=== PATIENT | female | born 1975 | race Caucasian/White ===

== ENCOUNTER → 2016-05-09 | Outpatient (REF) | payer OTHER | LOC: M LAB REF 15:17 | PROVIDERS: ATTEND Physician Assistant | DX: N39.0 Urinary tract infection, site not specified (principal) ==

== ENCOUNTER → 2017-05-14 | Outpatient (CLI) | payer OTHER | LOC: M RAD 09:25 | DX: R79.9 Abnormal finding of blood chemistry, unspecified (principal) | CPT/HCPCS: 70551 ==

== ENCOUNTER → 2018-04-29 | Outpatient (REF) | payer OTHER | LOC: M LAB REF 11:00 | PROVIDERS: ATTEND Physician Assistant | DX: R30.0 Dysuria (principal) ==

== ENCOUNTER → 2019-04-20 | Outpatient (REF) | payer OTHER ==
[2019-04-20 12:56] LABS: BASO % 0.7 % (0.0-1.0); EOS # 0.1 10^3/uL (0.0-0.5); EOS % 1.4 % (0.0-3.0); LYMPH # 1.8 10^3/uL (1.5-5.0); MEAN CORPUSCULAR HEMOGLOBIN 30.7 pg (27.0-33.0); MEAN CORPUSCULAR HGB CONC 32.5 g/dl (32.0-36.5); MEAN CORPUSCULAR VOLUME 94.6 fl (80.0-96.0); MONO # 0.5 10^3/uL (0.0-0.8); MONO % 8.4 % (0.0-5.0); NEUTROPHILS # 3.4 10^3/uL (1.5-8.5); NEUTROPHILS % 58.2 % (36.0-66.0); PLATELET COUNT, AUTOMATED 256 10^3/uL (150-450); RED BLOOD COUNT 4.23 10^6/uL (4.00-5.40); WHITE BLOOD COUNT 5.8 10^3/uL (4.0-10.0)
[2019-04-20 13:39] LABS: ALT/SGPT 16 U/L (12-78); BILIRUBIN,TOTAL 0.3 MG/DL (0.2-1.0); BLOOD UREA NITROGEN 11 MG/DL (7-18); CALCIUM LEVEL 8.6 MG/DL (8.5-10.1); CARBON DIOXIDE LEVEL 27 MEQ/L (21-32); CHLORIDE LEVEL 108 MEQ/L (98-107); GLOMERULAR FILTRATION RATE > 60.0 (>58); GLUCOSE, FASTING 86 MG/DL (70-100); POTASSIUM SERUM 4.5 MEQ/L (3.5-5.1); SODIUM LEVEL 140 MEQ/L (136-145)
[2019-04-20 13:40] LABS: CHOLESTEROL LEVEL 172 MG/DL (<200); CHOLESTEROL RISK RATIO 2.492 (<5); FREE T4 0.88 NG/DL (0.76-1.46); HDL CHOLESTEROL 69 MG/DL (>40); LDL CHOLESTEROL 74 MG/DL (<100); NON-HDL-C 103 MG/DL; TRIGLYCERIDES LEVEL 145 MG/DL (<150)
[2019-04-20 13:41] LABS: PROLACTIN 17.4 NG/ML
== END ==
LOC: M SFHCADAM 08:37
PROVIDERS: ATTEND Physician Assistant Medical
DX: Z13.0 Encounter for screening for diseases of the blood and blood-forming organs and certain disorders involving the immune mechanism (principal); Z13.220 Encounter for screening for lipoid disorders; R00.2 Palpitations; E22.1 Hyperprolactinemia; E28.2 Polycystic ovarian syndrome

== ENCOUNTER → 2019-04-28 | Outpatient (CLI) | payer OTHER ==
--- NOTE | 2019-04-28 15:18 | ECHO ---
DATE OF PROCEDURE: 04/28/2019 REFERRING PHYSICIAN: BILLY Pina INDICATION: Palpitations. OUTPATIENT STUDY HEIGHT: 165 cm WEIGHT: 70 kg DIMENSIONS: IV is 0.9 LV 5.1 LVPW 0.8 LA 3.3 Aorta 2.8 RV 2.5 IVC 2.0 Mitral E wave velocity 77, A-wave 51 E prime septal 8.5, E prime lateral 15.1 FINDINGS: The study is of excellent technical quality. The patient is in sinus rhythm. Left ventricle is normal size and systolic function, estimated left ventricular ejection fraction of 60-65%. Right ventricle is also normal size and systolic function. Both atria appear normal. All four cardiac valves were well seen and appear normal. No pericardial effusion is noted. Inferior vena cava is in upper limits of normal size but appropriately collapses with inspiration. Aortic root, aortic arch and abdominal aorta all appear normal. Doppler interrogation reveals competent aortic valve. There is trace mitral tricuspid and pulmonic insufficiency. Calculated pulmonary artery pressure is within normal limits. Mitral inflow pattern and tissue Doppler imaging of mitral annulus reveal normal diastolic function. CONCLUSIONS: 1. Study is of excellent technical quality, the patient is in sinus rhythm. 2. Normal LV size, systolic and diastolic function. 3. Trace mitral, tricuspid and pulmonic insufficiency. 4. Likely normal central venous pressure and normal pulmonary artery pressure. COMMENTS: SBE prophylaxis is not recommended. Essentially normal echocardiogram.
--- NOTE | 2019-04-29 19:52 | HOLTMON ---
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 23 hours and 10 minutes were usable for analysis. Baseline mechanism was sinus rhythm with normal AV conduction and narrow QRS complex. Minimum HR was 46 bpm, average HR 68 bpm and maximum HR 110 bpm. There were no PVC's and 5 PAC's. No pauses and no episodes of atrial fibrillation. No manual transmissions. Normal Holter monitor. Electronically Signed on 04-29-2019 19:52:09 EST by Tang Porter
== END ==
LOC: M CARPUL 09:12
PROVIDERS: ATTEND Physician Assistant Medical
DX: R00.2 Palpitations (principal)

== ENCOUNTER → 2019-10-03 | Outpatient (REF) | payer OTHER ==
[2019-10-03 13:53] LABS: BLOOD UREA NITROGEN 9 MG/DL (7-18); CARBON DIOXIDE LEVEL 28 MEQ/L (21-32); CHLORIDE LEVEL 106 MEQ/L (98-107); CREATININE FOR GFR 0.67 MG/DL (0.55-1.30); GLOMERULAR FILTRATION RATE > 60.0 (>58); GLUCOSE, FASTING 80 MG/DL (70-100); POTASSIUM SERUM 4.4 MEQ/L (3.5-5.1); SODIUM LEVEL 138 MEQ/L (136-145)
== END ==
LOC: M SFHCADAM 08:03
PROVIDERS: ATTEND Physician Assistant Medical
DX: E28.2 Polycystic ovarian syndrome (principal)

== ENCOUNTER → 2020-07-30 | Outpatient (REF) | payer OTHER | LOC: M LAB REF 16:02 | PROVIDERS: ATTEND Physician Assistant | DX: N39.0 Urinary tract infection, site not specified (principal) ==

== ENCOUNTER → 2021-04-14 | Outpatient (REF) | payer OTHER ==
[2021-04-14 18:11] LABS: BASO # 0.1 10^3/uL (0.0-0.2); BASO % 0.5 % (0.0-1.0); EOS # 0.1 10^3/uL (0.0-0.5); EOS % 0.5 % (0.0-3.0); HEMATOCRIT 44.4 % (36.0-47.0); HEMOGLOBIN 14.4 g/dl (12.0-15.5); LYMPH # 1.9 10^3/uL (1.5-5.0); LYMPH % 18.8 % (24.0-44.0); MEAN CORPUSCULAR HEMOGLOBIN 30.8 pg (27.0-33.0); MEAN CORPUSCULAR HGB CONC 32.4 g/dl (32.0-36.5); MEAN CORPUSCULAR VOLUME 95.1 fl (80.0-96.0); MONO # 0.5 10^3/uL (0.0-0.8); MONO % 4.8 % (2.0-8.0); NEUTROPHILS # 7.7 10^3/uL (1.5-8.5); PLATELET COUNT, AUTOMATED 319 10^3/uL (150-450); RED BLOOD COUNT 4.67 10^6/uL (4.00-5.40); WHITE BLOOD COUNT 10.2 10^3/uL (4.0-10.0)
[2021-04-14 18:33] LABS: ALT/SGPT 23 U/L (12-78); BILIRUBIN,TOTAL 0.4 MG/DL (0.2-1.0); BLOOD UREA NITROGEN 11 MG/DL (7-18); CARBON DIOXIDE LEVEL 30 MEQ/L (21-32); CHLORIDE LEVEL 105 MEQ/L (98-107); CREATININE FOR GFR 0.73 MG/DL (0.55-1.30); GLOMERULAR FILTRATION RATE > 60.0 (>58); GLUCOSE, FASTING 94 MG/DL (70-100); POTASSIUM SERUM 4.2 MEQ/L (3.5-5.1); SODIUM LEVEL 139 MEQ/L (136-145); TOTAL PROTEIN 6.9 GM/DL (6.4-8.2)
[2021-04-14 18:56] LABS: TOTAL 25(OH) VITAMIN D 17.1 NG/ML (30.0-100.0)
== END ==
LOC: M SFHCADAM 15:20
PROVIDERS: ATTEND Physician Assistant Medical
DX: Z00.00 Encounter for general adult medical examination without abnormal findings (principal); E28.2 Polycystic ovarian syndrome; R00.2 Palpitations; E22.1 Hyperprolactinemia

== ENCOUNTER → 2022-04-15 | Outpatient (REF) | payer OTHER ==
[2022-04-15 14:08] LABS: BLOOD UREA NITROGEN 11 MG/DL (9-23); CALCIUM LEVEL 8.5 MG/DL (8.5-10.1); CARBON DIOXIDE LEVEL 24 MMOL/L (20-31); CHLORIDE LEVEL 106 MMOL/L (98-107); CREATININE FOR GFR 0.65 MG/DL (0.55-1.30); GLOMERULAR FILTRATION RATE > 60.0 (>58); GLUCOSE, FASTING 84 MG/DL (60-100); POTASSIUM SERUM 4.5 MMOL/L (3.5-5.1); SODIUM LEVEL 139 MMOL/L (136-145)
[2022-04-15 14:10] LABS: PROLACTIN 13.11 NG/ML
== END ==
LOC: M SFHCADAM 09:25
PROVIDERS: ATTEND Physician Assistant Medical
DX: E28.2 Polycystic ovarian syndrome (principal); Z86.39 Personal history of other endocrine, nutritional and metabolic disease

== ENCOUNTER → 2023-02-06 | Outpatient (REF) | payer OTHER | LOC: M WUC 19:50 | PROVIDERS: ATTEND Registered Nurse | DX: N39.0 Urinary tract infection, site not specified (principal) ==

== ENCOUNTER → 2023-04-20 | Outpatient (REF) | payer OTHER ==
[2023-04-20 13:31] LABS: ALBUMIN 3.7 G/DL (3.2-5.2); ALKALINE PHOSPHATASE 50 U/L (46-116); ALT/SGPT 11 U/L (7.0-40); AST/SGOT 16 U/L (<34); BILIRUBIN,TOTAL 0.6 MG/DL (0.3-1.2); BLOOD UREA NITROGEN 9 MG/DL (9-23); CALCIUM LEVEL 8.6 MG/DL (8.5-10.1); CARBON DIOXIDE LEVEL 26 MMOL/L (20-31); CHLORIDE LEVEL 109 MMOL/L (98-107); CHOLESTEROL LEVEL 159 MG/DL (<200); CREATININE FOR GFR 0.73 MG/DL (0.55-1.30); GLOMERULAR FILTRATION RATE > 60.0 (>58); GLUCOSE, FASTING 91 MG/DL (60-100); LDL CHOLESTEROL 83.8 MG/DL (<100); POTASSIUM SERUM 4.4 MMOL/L (3.5-5.1); SODIUM LEVEL 141 MMOL/L (136-145); TOTAL PROTEIN 6.1 G/DL (5.7-8.2); TRIGLYCERIDES LEVEL 71 MG/DL (<150)
[2023-04-20 13:32] LABS: TOTAL 25(OH) VITAMIN D 29.1 NG/ML (20.0-100.0)
[2023-04-20 13:33] LABS: PROLACTIN 14.97 NG/ML
[2023-04-20 13:34] LABS: THYROID STIMULATING HORMONE 2.479 uIU/ML (0.55-4.78)
[2023-04-20 13:37] LABS: BASO # 0.1 10^3/uL (0.0-0.2); BASO % 0.8 % (0.0-1.0); EOS # 0.1 10^3/uL (0.0-0.5); EOS % 1.2 % (0.0-3.0); HEMATOCRIT 43.7 % (36.0-47.0); HEMOGLOBIN 14.1 g/dl (12.0-15.5); LYMPH # 2.2 10^3/uL (1.5-5.0); MEAN CORPUSCULAR HEMOGLOBIN 31.3 pg (27.0-33.0); MEAN CORPUSCULAR HGB CONC 32.3 g/dl (32.0-36.5); MEAN CORPUSCULAR VOLUME 96.9 fl (80.0-96.0); MONO # 0.5 10^3/uL (0.0-0.8); MONO % 7.5 % (2.0-8.0); NEUTROPHILS # 3.8 10^3/uL (1.5-8.5); NEUTROPHILS % 57.2 % (36.0-66.0); PLATELET COUNT, AUTOMATED 271 10^3/uL (150-450); RED BLOOD COUNT 4.51 10^6/uL (4.00-5.40); WHITE BLOOD COUNT 6.6 10^3/uL (4.0-10.0)
== END ==
LOC: M SFHCADAM 07:57
PROVIDERS: ATTEND Physician Assistant Medical
DX: Z13.220 Encounter for screening for lipoid disorders (principal); Z13.0 Encounter for screening for diseases of the blood and blood-forming organs and certain disorders involving the immune mechanism; Z86.39 Personal history of other endocrine, nutritional and metabolic disease; E28.2 Polycystic ovarian syndrome; E55.9 Vitamin D deficiency, unspecified

== ENCOUNTER 2023-11-23 06:56 | Day surgery (SDC) | payer OTHER ==
[~2023-11-23] VITALS: Ht 167.6 cm; Wt 83.0 kg
[~2023-11-23 06:56] MED LIST: SPIR50TA4 PO
[2023-11-23] MEDS: NS 1,000 ML IV ONE (07:19)
[2023-11-23] MEDS ORDERED: propofoL 200 MG/20 ML VIAL As Ordered ONE (08:13)
[2023-11-23] MEDS ORDERED: LIDOCAINE 2% 100MG/5ML SDV (FOR ANES.) As Ordered ONE (08:13)
[2023-11-23 08:43] VITALS: TEMP 97.3
[2023-11-23 09:06] VITALS: BP 113/67; O2SAT 100
== END 2023-11-23 09:14 | disposition home or self-care (01) ==
LOC: M OPP 06:56
PROVIDERS: ATTEND Internal Medicine Gastroenterology
DX: Z12.11 Encounter for screening for malignant neoplasm of colon (principal); K63.5 Polyp of colon; K64.8 Other hemorrhoids; K57.30 Diverticulosis of large intestine without perforation or abscess without bleeding; Z79.899 Other long term (current) drug therapy; Z88.1 Allergy status to other antibiotic agents; Z91.011 Allergy to milk products

== ENCOUNTER → 2024-08-06 | Outpatient (CLI) | payer OTHER | LOC: M WHC 09:51 | PROVIDERS: ATTEND Obstetrics & Gynecology | DX: N85.2 Hypertrophy of uterus (principal); N83.202 Unspecified ovarian cyst, left side ==